=== PATIENT | male | born 1975 ===

== ENCOUNTER 2020-01-20 08:32 | Outpatient (CLI) | payer OTHER ==
[~2020-01-20 08:32] MED LIST: FLOVENT 110MCG7.9 GM IH; PROVENTIL HFA6.7 GM IH; SINGULAIR10 MG PO; ZYNCOF 20-400120 ML PO
== END 2020-01-20 08:43 | disposition home or self-care (01) ==
LOC: RAD 08:32
PROVIDERS: ATTEND Surgery Plastic and Reconstructive Surgery
DX: Z01.811 Encounter for preprocedural respiratory examination (principal)

== ENCOUNTER 2020-02-12 15:10 | Outpatient (CLI) | payer OTHER | END 2020-02-12 15:18 | disposition home or self-care (01) | LOC: EKG 15:10 | PROVIDERS: ATTEND Specialist | DX: Z01.810 Encounter for preprocedural cardiovascular examination (principal) ==

== ENCOUNTER 2021-04-20 08:26 | Outpatient (CLI) | payer OTHER | END 2021-04-20 08:46 | disposition home or self-care (01) | LOC: SONOGRAMA 08:26 → MAMO-SONO 08:45 → SONOGRAMA 08:46 | PROVIDERS: ATTEND Internal Medicine Cardiovascular Disease | DX: R10.84 Generalized abdominal pain (principal) ==

== ENCOUNTER 2021-10-10 10:27 | Outpatient (CLI) | payer OTHER | END 2021-10-10 10:36 | disposition home or self-care (01) | LOC: RAD 10:27 | PROVIDERS: ATTEND Chiropractor | DX: M54.2 Cervicalgia (principal); M54.6 Pain in thoracic spine; M54.50 Low back pain, unspecified; M62.830 Muscle spasm of back ==